=== PATIENT | male | born 1960 | race Caucasian/White ===

== ENCOUNTER 2016-09-27 14:10 | Emergency (ER) | payer MEDICARE, OTHER ==
[2016-09-27 14:55] LABS: BASO % 0.4 % (0.2-1.2); EOS # 0.2 10_X3_uL (0.0-0.5); EOS % 2.1 % (0.8-7.0); GRAN # 4.5 10_X3_uL (1.8-5.4); GRAN % 42.4 % (34.0-67.9); HEMATOCRIT 43.6 % (40-51); HEMOGLOBIN 14.6 g/dL (13.7-17.5); LYMPH # 4.4 10_X3_uL (1.3-3.6); LYMPH % 42.1 % (21.8-53.1); MEAN CORPUSCULAR HEMOGLOBIN 31.5 pg (27.0-33.0); MEAN CORPUSCULAR HGB CONC 33.5 g/dL (32.0-36.0); MEAN PLATELET VOLUME 8.8 fl (7.5-11.5); MONO # 1.4 10_X3_uL (0.3-0.8); PLATELET COUNT 407 x10_3/uL (163-337); RED BLOOD COUNT 4.64 x10_6/uL (4.6-6.1); RED CELL DISTRIBUTION WIDTH 15.7 % (11.6-14.4); WHITE BLOOD COUNT 10.5 x10_3/uL (4.2-9.1)
[2016-09-27 15:10] LABS: BLOOD UREA NITROGEN 11 mg/dL (7-18); CALCIUM 9.3 mg/dL (8.7-10.7); CARBON DIOXIDE 24 mmol/L (21-32); CREATININE 0.7 mg/dL (0.6-1.3); GLUCOSE,RANDOM 77 mg/dL (70-99); POTASSIUM 3.9 mmol/L (3.5-5.1); SODIUM 139 mmol/L (136-145)
== END 2016-09-27 16:20 ==
LOC: EDSTATUS 14:10 → ER 14:12
PROVIDERS: General Practice
DX: R07.9 Chest pain, unspecified (principal); J18.9 Pneumonia, unspecified organism; J44.9 Chronic obstructive pulmonary disease, unspecified; M54.2 Cervicalgia; M54.9 Dorsalgia, unspecified; G89.29 Other chronic pain; J84.9 Interstitial pulmonary disease, unspecified; K21.9 Gastro-esophageal reflux disease without esophagitis; F41.9 Anxiety disorder, unspecified; F17.210 Nicotine dependence, cigarettes, uncomplicated; Z79.899 Other long term (current) drug therapy; Z79.1 Long term (current) use of non-steroidal anti-inflammatories (NSAID); M54.5 Low back pain; M54.10 Radiculopathy, site unspecified; M51.36 Other intervertebral disc degeneration, lumbar region
CPT/HCPCS: 36415; 71010; 72148; 80048; 83880; 85025; 93005; 96372; 99284; 99285-25; J2930

== ENCOUNTER 2016-11-05 02:26 | Emergency (ER) | payer MEDICARE, OTHER | END 2016-11-05 03:40 | disposition home or self-care (01) | LOC: ER 02:26 | DX: S60.221A Contusion of right hand, initial encounter (principal); S60.211A Contusion of right wrist, initial encounter; W23.0XXA Caught, crushed, jammed, or pinched between moving objects, initial encounter; F17.210 Nicotine dependence, cigarettes, uncomplicated; F41.9 Anxiety disorder, unspecified | CPT/HCPCS: 73110; 73130; 99283 ==

== ENCOUNTER 2016-12-02 18:02 | Emergency (ER) | payer MEDICARE, OTHER | END 2016-12-02 21:26 | disposition home or self-care (01) | LOC: ER 18:02 | DX: M25.531 Pain in right wrist (principal); F17.210 Nicotine dependence, cigarettes, uncomplicated; Z88.8 Allergy status to other drugs, medicaments and biological substances; Z88.6 Allergy status to analgesic agent | CPT/HCPCS: 73110; 99283 ==